=== PATIENT | male | born 1970 | race Caucasian/White ===

== ENCOUNTER 2016-06-25 09:52 | Emergency (ER) | payer OTHER ==
[2016-06-25 10:01] VITALS: BP 121/86
--- NOTE | 2016-06-25 12:09 | ER Document Report ---
ED Skin Rash/Insect Bite/Abscs - General Chief Complaint: Abscess Stated Complaint: ABSCESS Time seen by provider: 12:06 Mode of Arrival: Ambulatory Information source: Patient Notes: 45-year-old male presents to ED for abscess to the right buttocks. States it started about 2 weeks ago as a small bump and has progressed to a very tender bump. States that yesterday it started bleeding. States the pain has increased the most over the last 3 days. TRAVEL OUTSIDE OF THE [place] IN LAST 30 DAYS: No - HPI Patient complains to provider of: Tender/swollen area Onset: Other Onset/Duration: Gradual - 2 weeks Quality of pain: Burning, Sharp Severity: Moderate Pain Level: 4 Skin Character: Abscess Quality of rash: Painful Identify cause: No Exacerbated by: Sitting, Movement, Walking Relieved by: Denies Similar symptoms previously: No Recently seen / treated by doctor: No - Related Data Allergies/Adverse Reactions: No Known Allergies Allergy (Verified 06/25/16 10:13) Past Medical History - General Information source: Patient - Social History Smoking Status: Former Smoker Cigarette use (# per day): No Chew tobacco use (# tins/day): Yes - half a tin a day Smoking Education Provided: No Frequency of alcohol use: None Drug Abuse: None Occupation: advertising sales associate for [employer] Lives with: Alone Family History: Arthritis, CAD, DM, Hyperlipidemia, Hypertension, Malignancy Patient has suicidal ideation: No Patient has homicidal ideation: No - Past Medical History Cardiac Medical History: Reports: None Pulmonary Medical History: Reports: None EENT Medical History: Reports: None Neurological Medical History: Reports: None Endocrine Medical History: Reports: None Renal/ Medical History: Reports: None Malignancy Medical History: Reports None GI Medical History: Reports: None Musculoskeltal Medical History: Reports Hx Arthritis Skin Medical History: Reports Hx Cellulitis Psychiatric Medical History: Reports: None Traumatic Medical History: Reports: None Infectious Medical History: Reports: None Past Surgical History: Reports: Hx Oral Surgery - [place] teeth - Immunizations Immunizations up to date: Yes Review of Systems - Review of Systems Constitutional: No symptoms reported EENT: No symptoms reported Cardiovascular: No symptoms reported Respiratory: No symptoms reported Gastrointestinal: No symptoms reported Genitourinary: No symptoms reported Male Genitourinary: No symptoms reported Musculoskeletal: No symptoms reported Skin: Other - Abscess right buttocks Hematologic/Lymphatic: No symptoms reported Neurological/Psychological: No symptoms reported Physical Exam - Vital signs Vitals: Temp Pulse Resp BP Pulse Ox 98.6 F 113 H 18 121/86 H 97 06/25/16 10:01 06/25/16 10:01 06/25/16 10:01 06/25/16 10:01 06/25/16 10:01 Interpretation: Normal - General General appearance: Appears well, Alert - HEENT Head: Normocephalic, Atraumatic Eyes: Normal Pupils: PERRL - Respiratory Respiratory status: No respiratory distress Chest status: Nontender Breath sounds: Normal Chest palpation: Normal - Cardiovascular Rhythm: Regular Heart sounds: Normal auscultation Murmur: No - Abdominal Inspection: Normal Distension: No distension Bowel sounds: Normal Tenderness: Nontender Organomegaly: No organomegaly - Back Back: Normal, Nontender - Extremities General upper extremity: Normal inspection, Nontender, Normal color, Normal ROM , Normal temperature General lower extremity: Normal inspection, Nontender, Normal color, Normal ROM , Normal temperature, Normal weight bearing. No: Sharona's sign - Neurological Neuro grossly intact: Yes Cognition: Normal Orientation: AAOx4 [place] Coma Scale Eye Opening: Spontaneous [place] Coma Scale Verbal: Oriented [place] Coma Scale Motor: Obeys Commands [place] Coma Scale Total: 15 Speech: Normal Motor strength normal: LUE, RUE, LLE, RLE Sensory: Normal - Psychological Associated symptoms: Normal affect, Normal mood - Skin Skin Temperature: Warm Skin Moisture: Dry Skin Color: Normal Skin irregularity: Abscess - Right buttocks Irregularity with: Swelling, Tenderness, Warmth, Weeping Course - Vital Signs Vital signs: Temp Pulse Resp BP Pulse Ox 98.6 F 113 H 18 121/86 H 97 06/25/16 10:01 06/25/16 10:01 06/25/16 10:01 06/25/16 10:01 06/25/16 10:01 Procedures - Incision and Drainage Left Buttock Type: Simple Anesthetic type: 1% Lidocaine mL's of anesthetic: 4 I&D procedure: Iodoform packing placed, Sterile dressing applied, Other - surgical scrub Incision Method: Incision made by scalpel Amount/type of drainage: large amount purlent Discharge - Discharge Clinical Impression: Abscess of right buttock Condition: Stable Disposition: HOME, SELF-CARE Instructions: Family Physicians / Practices Additional Instructions: ABSCESS: You have an abscess (boil). This a pus-forming infection, usually due to staph. Some boils may be left to drain on their own, but most require lancing. From the time the tender lump first appears, it may be three or four days before the abscess is ready to daniel. Local heat and rest help at this stage of treatment. An antibiotic may prevent spread of the infection. Once the abscess is opened, packing may be placed into it. This is done so pus is not sealed inside by premature closure of the cavity. The packing will be removed at your follow-up visit or you may be advised to remove it yourself at home. Sometimes this packing must be replaced a few times during healing. The wound will heal with surprisingly little scar. Depending on the size and location of an abscess, healing can take one to four weeks. You may shower and wash the area around the incision site two or three times a day. Antibiotics may be prescribed, but are usually not necessary after an abscess has been drained. If you develop fever, chills, worsening pain, or increasing swelling in the area, call the doctor or return immediately. POST INCISION AND DRAINAGE: You have had an incision made to allow drainage of an abscess. The incision must remain open so that pus and debris can drain from the wound. If the abscess cavity is large, packing is placed. This keeps the tissues from collapsing and trapping pus inside, while the body shrinks the cavity. The packing may need to be replaced every day or two. The physician will instruct you on the packing. Keep a bulky dressing over the area. Replace it if it becomes saturated with blood or pus. Do not disturb the packing (if present). You may shower and cleanse the area with gentle soap and warm water two or three times a day. Local warmth may be soothing, and may promote faster healing. Return if you develop high fever or chills, or if you note spreading redness, increasing swelling, or increasing tenderness. ORAL NARCOTIC MEDICATION: You have been given a prescription for pain control. This medication is a narcotic. It's best taken with food, as nausea can result if taken on an empty stomach. Don't operate machinery or drive within six hours of taking this medication. Do not combine this medicine with alcohol, or with any medication which can cause sedation (such as cold tablets or sleeping pills) unless you get permission from the physician. Narcotics tend to cause constipation. If possible, drink plenty of fluids and eat a diet high in fiber and fruits. CEPHALEXIN: The antibiotic you've been prescribed is a member of the cephalosporin class. This type of antibiotic covers a wide variety of infections, including those of the skin, lungs, and urinary tract. It's useful for staph infections. This antibiotic is slightly similar to the penicillin family. In rare cases , a person who is allergic to penicillin will also be allergic to this medication. If you have had a severe allergic reaction to penicillin, and have not taken this antibiotic since that time, notify your doctor. Antibiotics which cover many germs ("broad spectrum" antibiotics) are more likely to cause diarrhea or "yeast" infections. Women prone to vaginal yeast problems may suffer an attack after taking this antibiotic. In infants, oral thrush (white spots "stuck" on the cheek) or yeast diaper rash may result. See your doctor if these problems occur. Call at once if you develop itching, hives , shortness of breath, or lightheadedness. TRIMETHOPRIM-SULFA: You have been given a prescription for trimethoprim-sulfa (TMS, Septra, Bactrim). This is a combination antibiotic of the sulfa class, often used for urinary tract infections, middle ear infections, bronchitis, shigella intestinal infection, and Pneumocystis pneumonia. TMS is usually well-tolerated. Occasional side effects include nausea and decreased appetite. Septra is not recommended for infants less than two months of age. Do not take this medication if you have experienced severe side effects or allergy to sulfa medicine. You should stop this medicine at once and contact your physician if you develop any rash, joint pain, shortness of breath, bruising, or jaundice ( yellow color in the skin), or if you develop any other new or unusual symptoms. FOLLOW-UP CARE: Most simple abscesses will not require a follow up visit. If you had packing placed in the abscess, remove it as instructed by the physician. If you have been referred to a physician for follow-up care, call the physicians office for an appointment as you were instructed or within the next two days. If you experience worsening or a significant change in your symptoms, return to the Emergency Department at any time for re-evaluation. Please complete the patient's satisfaction survey if you get one and return. If you do not receive a survey you can go to [facility] website [email or web address] and placed yourcomments about your very good care. Thank you very much. It was a pleasure be in your medical provider today. Prescriptions: Hydrocodone/Acetaminophen [[place] 5-325 Tablet] 1 each PO Q6HP PRN #14 tablet PRN Reason: Cephalexin Monohydrate [Keflex 500 mg Capsule] 500 mg PO QID #20 capsule Sulfamethoxazole/Trimethoprim [Septra-Ds 800-160 mg Tablet] 1 tab PO BID #20 tablet Forms: Elevated Blood Pressure, Return to Work
[2016-06-25] MEDS ORDERED: SULFAMETHOXAZOLE/TRIMETHOPRIM 800-160 MG TABLET PO ONE (12:43)
[2016-06-25] MEDS ORDERED: CEPHALEXIN 500 MG CAPSULE PO ONE (12:44)
== END 2016-06-25 13:05 | disposition home or self-care (01) ==
LOC: ER 09:52
PROC: 0H98XZZ Drainage of Buttock Skin, External Approach (ICD-10-PCS; principal; 2016-06-25)
DX: L02.31 Cutaneous abscess of buttock (principal); Z72.0 Tobacco use
CPT/HCPCS: 87070; 87075; 87077; 87205; 99283

== ENCOUNTER 2016-08-04 12:31 | Emergency (ER) | payer SELFPAY ==
[2016-08-04 12:39] VITALS: BP 119/86
--- NOTE | 2016-08-04 13:52 | ER Document Report ---
ED Skin Rash/Insect Bite/Abscs - General Chief Complaint: Abscess Stated Complaint: ABSCESS Notes: patient is a 45 year old male who presents with an exisiting abscess for assessment. located on right buttoks. he states it has continued drainage and pain at the site. he took his antibiotics as prescribed. pain is only illicted to touch. denies fevers or chills TRAVEL OUTSIDE OF THE [place] IN LAST 30 DAYS: No - Related Data Allergies/Adverse Reactions: No Known Allergies Allergy (Verified 08/04/16 12:36) Past Medical History - Social History Smoking Status: Never Smoker Family History: Arthritis, CAD, DM, Hyperlipidemia, Hypertension, Malignancy Patient has suicidal ideation: No Patient has homicidal ideation: No Renal/ Medical History: Denies: Hx Peritoneal Dialysis Musculoskeltal Medical History: Reports Hx Arthritis Skin Medical History: Reports Hx Cellulitis Past Surgical History: Reports: Hx Oral Surgery - [place] teeth - Immunizations Immunizations up to date: Yes Review of Systems - Review of Systems Constitutional: No symptoms reported EENT: No symptoms reported Cardiovascular: No symptoms reported Respiratory: No symptoms reported Gastrointestinal: No symptoms reported Skin: See HPI Physical Exam - Vital signs Vitals: Temp Pulse Resp BP Pulse Ox 98.2 F 78 16 119/86 H 98 08/04/16 12:37 08/04/16 12:37 08/04/16 12:37 08/04/16 12:37 08/04/16 12:37 - Notes Notes: PHYSICAL EXAM GENERAL: Alert, interacts well. NEUROLOGICAL: Alert and oriented x4. Normal speech. PSYCH: Normal affect, normal mood. SKIN: Warm, dry, normal turgor. No rashes or lesions noted. - Skin Skin Temperature: Warm Skin Moisture: Dry Skin Color: Normal Skin Turgor: Elastic Skin irregularity: Abscess Location of irregularity: Other - right buttocks Course - Re-evaluation Re-evalutation: 08/04/16 20:53 Site is well healing by second intention previously dictated abscess. No evidence of drainage. No evidence of erythema nontender to palpation. Review of previous wound culture shows evidence of Peptostreptococcus. Will treat with medications to cover it - Vital Signs Vital signs: Temp Pulse Resp BP Pulse Ox 98.2 F 78 16 119/86 H 98 08/04/16 12:37 08/04/16 12:37 08/04/16 12:37 08/04/16 12:37 08/04/16 12:37 Discharge - Discharge Clinical Impression: Cellulitis Condition: Good Disposition: HOME, SELF-CARE Instructions: Cellulitis ([facility]) Prescriptions: Clindamycin HCl 450 mg PO TID #5 capsule
== END 2016-08-04 13:55 | disposition home or self-care (01) ==
LOC: ER 12:31
DX: L03.90 Cellulitis, unspecified (principal); L02.31 Cutaneous abscess of buttock
CPT/HCPCS: 99283

== ENCOUNTER 2016-09-14 09:04 | Emergency (ER) | payer SELFPAY ==
[2016-09-14] MEDS ORDERED: NORMAL SALINE 1000 ML 1,000 ML IV PRN (09:42)
[2016-09-14] MEDS ORDERED: ONDANSETRON HCL INJ/PF 4 MG/2 ML SDV IV ONE (09:42)
--- NOTE | 2016-09-14 09:43 | ER Document Report ---
ED Medical Screen (RME) - General Chief Complaint: Rectal Bleeding Stated Complaint: POSSIBLE BLOOD IN STOOL Time Seen by Provider: 09/14/16 09:37 Mode of Arrival: Ambulatory Information source: Patient TRAVEL OUTSIDE OF THE [place] IN LAST 30 DAYS: No - HPI Patient complains to provider of: bloody stools Notes: 09/14/16 09:46 Patient is a 46-year-old male who presents to the emergency room complaining of a 5 day history of mucousy stools that started to have blood in them this morning, he is having pain across his lower abdomen, he denies any fevers, no urinary symptoms, no history of similar symptoms previously, no surgical history no trauma, he does have a history of a buttock abscess that was treated at this facility back in July which she states is not really gotten much better - Related Data Smoking: Chew Frequency of alcohol use: Occasional Drug Abuse: None Allergies/Adverse Reactions: No Known Allergies Allergy (Verified 08/04/16 12:36) Past Medical History Renal/ Medical History: Denies: Hx Peritoneal Dialysis Musculoskeltal Medical History: Reports Hx Arthritis Skin Medical History: Reports Hx Cellulitis Past Surgical History: Reports: Hx Oral Surgery - [place] teeth - Immunizations Immunizations up to date: Yes Physical Exam - Vital signs Vitals: Temp Pulse Resp BP Pulse Ox 98.9 F 125 H 18 146/84 H 95 09/14/16 09:08 09/14/16 09:08 09/14/16 09:08 09/14/16 09:08 09/14/16 09:08 Course - Vital Signs Vital signs: Temp Pulse Resp BP Pulse Ox 98.9 F 125 H 18 146/84 H 95 09/14/16 09:08 09/14/16 09:08 09/14/16 09:08 09/14/16 09:08 09/14/16 09:08
[2016-09-14 10:12] LABS: ABSOLUTE BASOPHILS # (AUTO) 0.1 10^3/uL (0.0-0.2); ABSOLUTE EOSINOPHILS # (AUTO) 0.2 10^3/uL (0.0-0.6); ABSOLUTE LYMPHOCYTES (AUTO) 1.3 10^3/uL (0.5-4.7); ABSOLUTE MONOCYTES (AUTO) 1.2 10^3/uL (0.1-1.4); ABSOLUTE NEUT (AUTO) 12.8 10^3/uL (1.7-8.2); BASOPHILS % (AUTO) 0.5 % (0-2); EOSINOPHILS % (AUTO) 1.5 % (0-6); HEMATOCRIT 47.4 % (37.9-51.0); HEMOGLOBIN 15.4 g/dL (13.5-17.0); HGB HCT DIFFERENCE -1.2; LYMPHOCYTES % (AUTO) 8.3 % (13-45); MEAN CORPUSCULAR HEMOGLOBIN 27.4 pg (27.0-33.4); MEAN CORPUSCULAR HGB CONC 32.5 g/dL (32.0-36.0); MEAN CORPUSCULAR VOLUME 84 fl (80-97); MONOCYTES % (AUTO) 7.5 % (3-13); RED BLOOD COUNT 5.62 10^6/uL (4.35-5.55); RED CELL DISTRIBUTION WIDTH 13.1 % (11.5-14.0); SEGMENTED NEUTROPHILS % (AUTO) 82.2 % (42-78); WHITE BLOOD COUNT 15.5 10^3/uL (4.0-10.5)
[2016-09-14 10:31] LABS: ALANINE AMINOTRANSFERASE 42 U/L (21-72); ALBUMIN 3.8 g/dL (3.5-5.0); ALKALINE PHOSPHATASE 91 U/L (38-126); ANION GAP 14 (5-19); ASPARTATE AMINO TRANSFERASE 25 U/L (17-59); BILIRUBIN,DIRECT 0.3 mg/dL (0.0-0.4); BILIRUBIN,TOTAL 0.6 mg/dL (0.2-1.3); BLOOD UREA NITROGEN 13 mg/dL (7-20); CALCIUM 8.9 mg/dL (8.4-10.2); CARBON DIOXIDE 20 mmol/L (22-30); CHLORIDE 102 mmol/L (98-107); CREATININE RESULT 0.93 mg/dL (0.52-1.25); GLUCOSE 162 mg/dL (75-110); LIPASE 45.9 U/L (23-300); POTASSIUM 4.3 mmol/L (3.6-5.0); SODIUM 136.3 mmol/L (137-145); TOTAL PROTEIN 6.9 g/dL (6.3-8.2)
--- NOTE | 2016-09-14 11:18 | RADIOLOGY REPORT (SQ) ---
EXAM DESCRIPTION: CT ABD/PELVIS WITH IV ONLY COMPLETED DATE/TIME: 09/14/2016 11:07 am REASON FOR STUDY: abd pain, bloody stools COMPARISON: None. TECHNIQUE: CT scan of the abdomen and pelvis performed using helical scanning technique with dynamic intravenous contrast injection. No oral contrast. Images reviewed with lung, soft tissue, and bone windows. Reconstructed coronal and sagittal MPR images reviewed. Delayed images for evaluation of the urinary system also acquired. All images stored on PACS. All CT scanners at this facility use dose modulation, iterative reconstruction, and/or weight based d osing when appropriate to reduce radiation dose to as low as reasonably achievable (ALARA). [facility]: Dose Right [facility]: CareDose [facility]: Dose Right [facility]: Teradose 4D [facility]: Lending[employer]ot CONTRAST TYPE AND DOSE: contrast/concentration: Isovue 370.00 mg/ml; Total Contrast Delivered: 100.0 ml; Total Saline Delivered: 72.0 ml RENAL FUNCTION: GFR > 60. RADIATION DOSE: Up-to-date CT equipment and radiation dose reduction techniques were employed. CTDIv ol: 19.7 - 20.8 mGy. DLP: 2556 mGy-cm.. LIMITATIONS: None. FINDINGS: LOWER CHEST: No significant findings. No nodules or infiltrates. LIVER: Normal size. No masses or dilated ducts. SPLEEN: Normal size. No focal lesions. PANCREAS: No masses. No significant calcifications. No adjacent inflammation or peripancreatic fluid collections. Pancreatic duct not dilated. GALLBLADDER: No identified stones by CT criteria. No inflammatory changes to suggest cholecystitis. ADRENAL GLANDS: No significant masses or asymmetry. RIGHT KIDNEY AND URETER: No solid masses. No significant calcifications. No hydronephrosis or hyd roureter. LEFT KIDNEY AND URETER: No solid masses. No significant calcifications. No hydronephrosis or hydr oureter. AORTA AND VESSELS: No aneurysm. No dissection. Renal arteries, SMA, celiac without stenosis. RETROPERITONEUM: No retroperitoneal adenopathy, hemorrhage or masses. BOWEL AND PERITONEAL CAVITY: Generalize sub mucosal and bowel wall thickening throughout the colon an d involving the distal ileum. No pericolonic fat stranding. APPENDIX: Normal. PELVIS: No mass or free fluid. Normal bladder. ABDOMINAL WALL: No masses. No hernias. BONES: No significant or acute findings. OTHER: No other significant finding. IMPRESSION: Diffuse colitis. TECHNICAL DOCUMENTATION: JOB ID: [id number] Quality ID # [id number]: Final reports with documentation of one or more dose reduction techniques (e.g., Au tomated exposure control, adjustment of the mA and/or kV according to patient size, use of iterative reconstruction technique) 2010 [employer]- All Rights Reserved
[2016-09-14 11:43] LABS: APPEARANCE,URINE CLEAR; BILIRUBIN,URINE NEGATIVE (NEGATIVE); GLUCOSE, URINE NEGATIVE (NEGATIVE); KETONES,URINE NEGATIVE (NEGATIVE); LEUKOCYTE ESTERASE,URINE NEGATIVE (NEGATIVE); NITRITE,URINE NEGATIVE (NEGATIVE); PROTEIN,URINE NEGATIVE (NEGATIVE); URINE SPECIFIC GRAVITY 1.018; UROBILINOGEN,URINE NEGATIVE mg/dL (<2.0)
--- NOTE | 2016-09-14 12:16 | ER Document Report ---
ED General - General Chief Complaint: Rectal Bleeding Stated Complaint: POSSIBLE BLOOD IN STOOL Time Seen by Provider: 09/14/16 09:37 Mode of Arrival: Ambulatory Information source: Patient Notes: 46-year-old male presents with complaints of cramping abdominal pain fever and bloody stools. Patient notes symptoms have been ongoing now for approximately 5 days. Patient denies any recent antibiotic use TRAVEL OUTSIDE OF THE [place] IN LAST 30 DAYS: No - HPI Onset: Last week Onset/Duration: Persistent Quality of pain: Cramping Severity: Mild Pain Level: 1 Associated symptoms: Diarrhea, Nausea Exacerbated by: Denies Relieved by: Denies Similar symptoms previously: No Recently seen / treated by doctor: No - Related Data Allergies/Adverse Reactions: No Known Allergies Allergy (Verified 09/14/16 09:58) Past Medical History - General Information source: Patient - Social History Smoking Status: Never Smoker Cigarette use (# per day): No Chew tobacco use (# tins/day): No Smoking Education Provided: No Frequency of alcohol use: Occasional Drug Abuse: None Family History: Arthritis, CAD, DM, Hyperlipidemia, Hypertension, Malignancy Patient has suicidal ideation: No Patient has homicidal ideation: No Renal/ Medical History: Denies: Hx Peritoneal Dialysis Musculoskeltal Medical History: Reports Hx Arthritis Skin Medical History: Reports Hx Cellulitis Past Surgical History: Reports: Hx Oral Surgery - [place] teeth, Hx Rectal Surgery - abscess - Immunizations Immunizations up to date: Yes Hx Diphtheria, Pertussis, Tetanus Vaccination: Yes Review of Systems - Review of Systems Notes: REVIEW OF SYSTEMS: CONSTITUTIONAL : Denies fever, chills, or sweats. Denies recent illness. EENT: Denies eye, ear, throat, or mouth pain or symptoms. Denies nasal or sinus congestion or discharge. Denies throat, tongue, or mouth swelling or difficulty swallowing. CARDIOVASCULAR: Denies chest pain. Denies palpitations or racing or irregular heart beat. Denies ankle edema. RESPIRATORY: Denies cough, cold, or chest congestion. Denies shortness of breath, difficulty breathing, or wheezing. GASTROINTESTINAL: Admits to diarrhea bloody stool GENITOURINARY: Denies difficulty urinating, painful urination, burning, frequency, blood in urine, or discharge. MUSCULOSKELETAL: Denies back or neck pain or stiffness. Denies joint pain or swelling. SKIN: Denies rash, lesions or sores. HEMATOLOGIC : Denies easy bruising or bleeding. LYMPHATIC: Denies swollen, enlarged glands. NEUROLOGICAL: Denies confusion or altered mental status. Denies passing out or loss of consciousness. Denies dizziness or lightheadedness. Denies headache. Denies weakness or paralysis or loss of use of either side. Denies problems with gait or speech. Denies sensory loss, numbness, or tingling. Denies seizures. PSYCHIATRIC: Denies anxiety or stress. Denies depression, suicidal ideation, or homicidal ideation. ALL OTHER SYSTEMS REVIEWED AND NEGATIVE. Dictation was performed using [employer] recognition software PHYSICAL EXAMINATION: GENERAL: Well-appearing, well-nourished and in no acute distress. HEAD: Atraumatic, normocephalic. EYES: Pupils equal round and reactive to light, extraocular movements intact, sclera anicteric, conjunctiva are normal. ENT: Nares patent, oropharynx clear without exudates. Moist mucous membranes. NECK: Normal range of motion, supple without lymphadenopathy LUNGS: Breath sounds clear to auscultation bilaterally and equal. No wheezes rales or rhonchi. HEART: Regular rate and rhythm without murmurs ABDOMEN: Soft, nontender, nondistended abdomen. No guarding, no rebound. No masses appreciated. Hemoccult positive Musculoskeletal: Normal range of motion, no pitting or edema. No cyanosis. NEUROLOGICAL: Cranial nerves grossly intact. Normal speech, normal gait. Normal sensory, motor exams PSYCH: Normal mood, normal affect. SKIN: Warm, Dry, normal turgor, no rashes or lesions noted. Physical Exam - Vital signs Vitals: Temp Pulse Resp BP Pulse Ox 98.9 F 125 H 18 146/84 H 95 09/14/16 09:08 09/14/16 09:08 09/14/16 09:08 09/14/16 09:08 09/14/16 09:08 Course - Re-evaluation Re-evalutation: 09/14/16 13:28 Patient is noted to have an elevated white count, his CT imaging was consistent with colitis, patient had been discharged on Cipro and Flagyl however I did receive a positive result for C. difficile afterwards. Patient had been prescribed Flagyl however I would like to increase the dosage given the positive diagnosis. A call was made by myself and then by the charge nurse and the voice message was left for the patient to call back After performing a Medical Screening Examination, I estimate there is LOW risk for ACUTE APPENDICITIS, BOWEL OBSTRUCTION, ACUTE CHOLECYSTITIS, PERFORATED DIVERTICULITIS, INCARCERATED HERNIA, PANCREATITIS, or PERFORATED ULCER, thus I consider the discharge disposition reasonable. Also, there is no evidence or peritonitis, sepsis, or toxicity. I have reevaluated this patient multiple times and no significant life threatening changes are noted. The patient and I have discussed the diagnosis and risks, and we agree with discharging home with close follow-up with the understanding that symptoms and presentations can change. We also discussed returning to the Emergency Department immediately if new or worsening symptoms occur. We have discussed the symptoms which are most concerning (e.g., bloody stool, fever, changing or worsening pain, intractable vomiting - standard verbal up date) that necessitate immediate return. - Vital Signs Vital signs: Temp Pulse Resp BP Pulse Ox 98.7 F 111 H 18 144/88 H 99 09/14/16 12:37 09/14/16 12:37 09/14/16 12:37 09/14/16 12:37 09/14/16 12:37 - Laboratory Result Diagrams: 09/14/16 09:50 09/14/16 09:50 Laboratory results interpreted by me: 09/14/16 09/14/16 09/14/16 09:50 09:50 10:55 WBC 15.5 H RBC 5.62 H Seg Neutrophils % 82.2 H Lymphocytes % 8.3 L Absolute Neutrophils 12.8 H Sodium 136.3 L Carbon Dioxide 20 L Glucose 162 H Urine Blood MODERATE H - Diagnostic Test Radiology reviewed: Image reviewed, Reports reviewed - Colitis Discharge - Discharge Clinical Impression: Colitis, Tachycardia, Colitis due to Clostridium difficile Condition: Stable Disposition: HOME, SELF-CARE Instructions: Colitis, Nonspecific ([facility]) Additional Instructions: Follow up with your physician tomorrow for further care or return to the ED IMMEDIATELY if symptoms worsen or new concerns occur. If you cannot afford to follow up with your primary care physician a list of low cost clinics have been provided at the end of your discharge papers as well. Prescriptions: Ondansetron HCl [Zofran 8 mg Tablet] 8 mg PO Q8HP PRN #30 tablet PRN Reason: Ciprofloxacin HCl [Cipro 500 mg Tablet] 500 mg PO BID #20 tablet Dicyclomine HCl [Bentyl 20 mg Tablet] 20 mg PO QID #40 tablet Metronidazole [Flagyl 500 mg Tablet] 500 mg PO Q6H #28 tablet
[2016-09-14 12:37] VITALS: BP 144/88
--- NOTE | 2016-09-14 13:02 | EKG REPORT ---
SEVERITY:- BORDERLINE ECG - SINUS TACHYCARDIA BORDERLINE T ABNORMALITIES, DIFFUSE LEADS : Confirmed by: Ana Shah MD 14-Sep-2016 13:01:34
== END 2016-09-14 12:37 | disposition home or self-care (01) ==
LOC: ER 09:04
DX: A04.7 Enterocolitis due to Clostridium difficile (principal); R00.0 Tachycardia, unspecified; R19.5 Other fecal abnormalities; R10.9 Unspecified abdominal pain; R11.0 Nausea
CPT/HCPCS: 93005; 99284; 96360; 36415; 87045; 87086; 89055; 87205; 83690; 85025; 82272; 80053; 81001; 87493 ×2; 74177; 93010; J7030

== ENCOUNTER 2016-10-09 06:42 | Emergency (ER) | payer SELFPAY ==
[2016-10-09] MEDS ORDERED: NORMAL SALINE 1000 ML 1,000 ML IV PRN (07:10)
[2016-10-09] MEDS ORDERED: NORMAL SALINE 1000 ML 1,000 ML IV ONE (07:17)
[2016-10-09] MEDS ORDERED: AMPICILLIN SOD/SULBACTAM 3 GM VIAL IV ONE (07:17)
[2016-10-09] MEDS ORDERED: METRONIDAZOLE 500 MG/NS RTU 100 ML IV ONE (07:17)
[2016-10-09] MEDS ORDERED: ONDANSETRON HCL INJ/PF 4 MG/2 ML SDV IV ONE (07:18)
[2016-10-09 07:32] LABS: ABSOLUTE BASOPHILS # (AUTO) 0.1 10^3/uL (0.0-0.2); ABSOLUTE EOSINOPHILS # (AUTO) 0.5 10^3/uL (0.0-0.6); ABSOLUTE LYMPHOCYTES (AUTO) 2.1 10^3/uL (0.5-4.7); ABSOLUTE MONOCYTES (AUTO) 1.5 10^3/uL (0.1-1.4); ABSOLUTE NEUT (AUTO) 15.2 10^3/uL (1.7-8.2); BASOPHILS % (AUTO) 0.7 % (0-2); EOSINOPHILS % (AUTO) 2.7 % (0-6); HEMATOCRIT 47.4 % (37.9-51.0); HEMOGLOBIN 15.4 g/dL (13.5-17.0); HGB HCT DIFFERENCE -1.2; LYMPHOCYTES % (AUTO) 10.5 % (13-45); MEAN CORPUSCULAR HEMOGLOBIN 27.4 pg (27.0-33.4); MEAN CORPUSCULAR HGB CONC 32.5 g/dL (32.0-36.0); MEAN CORPUSCULAR VOLUME 84 fl (80-97); MONOCYTES % (AUTO) 7.8 % (3-13); RED BLOOD COUNT 5.63 10^6/uL (4.35-5.55); RED CELL DISTRIBUTION WIDTH 13.9 % (11.5-14.0); SEGMENTED NEUTROPHILS % (AUTO) 78.3 % (42-78); WHITE BLOOD COUNT 19.5 10^3/uL (4.0-10.5)
[2016-10-09 07:35] LABS: VENOUS BLOOD BASE EXCESS -0.9 mmol/L; VENOUS BLOOD HCO3 24.7 mmol/L (20-32); VENOUS BLOOD PCO2 44.2 mmHg (35-63); VENOUS BLOOD PH 7.37 (7.30-7.42)
[2016-10-09 07:38] LABS: PROTHROMBIN TIME 13.1 SEC (11.4-15.4)
[2016-10-09 07:39] LABS: PARTIAL THROMBOPLASTIN TIME 28.6 SEC (23.5-35.8)
[2016-10-09 07:58] LABS: ALANINE AMINOTRANSFERASE 47 U/L (21-72); ALBUMIN 3.8 g/dL (3.5-5.0); ALKALINE PHOSPHATASE 80 U/L (38-126); ANION GAP 13 (5-19); ASPARTATE AMINO TRANSFERASE 22 U/L (17-59); BILIRUBIN,DIRECT 0.3 mg/dL (0.0-0.4); BILIRUBIN,TOTAL 0.9 mg/dL (0.2-1.3); BLOOD UREA NITROGEN 14 mg/dL (7-20); CALCIUM 9.1 mg/dL (8.4-10.2); CARBON DIOXIDE 24 mmol/L (22-30); CHLORIDE 102 mmol/L (98-107); CREATININE RESULT 1.09 mg/dL (0.52-1.25); GLUCOSE 151 mg/dL (75-110); LIPASE 67.3 U/L (23-300); SODIUM 139.2 mmol/L (137-145); TOTAL PROTEIN 6.7 g/dL (6.3-8.2)
[2016-10-09 08:56] LABS: APPEARANCE,URINE SLIGHTLY-CLOUDY; BILIRUBIN,URINE NEGATIVE (NEGATIVE); GLUCOSE, URINE NEGATIVE (NEGATIVE); KETONES,URINE NEGATIVE (NEGATIVE); LEUKOCYTE ESTERASE,URINE NEGATIVE (NEGATIVE); NITRITE,URINE NEGATIVE (NEGATIVE); PROTEIN,URINE 30 mg/dL (NEGATIVE); URINE SPECIFIC GRAVITY 1.031; UROBILINOGEN,URINE NEGATIVE mg/dL (<2.0)
--- NOTE | 2016-10-09 10:08 | ER Document Report ---
ED General - General Chief Complaint: Diarrhea Stated Complaint: ABDOMINEL CRAMPING,DIARRHEA Time Seen by Provider: 10/09/16 07:15 TRAVEL OUTSIDE OF THE [place] IN LAST 30 DAYS: No - HPI Patient complains to provider of: Abdominal cramping nausea diarrhea Notes: Patient coming in for abdominal cramping nausea diarrhea. Patient was recently seen and diagnosed with C. difficile colitis states was given Flagyl antibiotics to call this antibiotics was feeling better for approximately 3 days now has continuing diarrhea. Patient denies any fevers or chills. Patient upon triage is tachycardic and hypotensive. Patient otherwise denies any other complaints denies specific area of abdominal pain - Related Data Allergies/Adverse Reactions: No Known Allergies Allergy (Verified 09/14/16 09:58) Past Medical History - Social History Smoking Status: Unknown if Ever Smoked Family History: Arthritis, CAD, DM, Hyperlipidemia, Hypertension, Malignancy Patient has suicidal ideation: No Patient has homicidal ideation: No Renal/ Medical History: Denies: Hx Peritoneal Dialysis Musculoskeltal Medical History: Reports Hx Arthritis Skin Medical History: Reports Hx Cellulitis Past Surgical History: Reports: Hx Oral Surgery - [place] teeth, Hx Rectal Surgery - abscess - Immunizations Immunizations up to date: Yes Hx Diphtheria, Pertussis, Tetanus Vaccination: Yes Review of Systems - Review of Systems Constitutional: No symptoms reported EENT: No symptoms reported Cardiovascular: No symptoms reported Respiratory: No symptoms reported Gastrointestinal: Abdominal pain, Diarrhea, Nausea Genitourinary: No symptoms reported Male Genitourinary: No symptoms reported Musculoskeletal: No symptoms reported Skin: No symptoms reported Hematologic/Lymphatic: No symptoms reported Neurological/Psychological: No symptoms reported -: Yes All other systems reviewed and negative Physical Exam - Vital signs Vitals: Temp Pulse Resp BP Pulse Ox 98.2 F 99 18 91/61 L 98 10/09/16 06:51 10/09/16 06:51 10/09/16 06:51 10/09/16 06:51 10/09/16 06:51 Interpretation: Normal - General General appearance: Appears well, Alert - HEENT Head: Normocephalic, Atraumatic Eyes: Normal Pupils: PERRL - Respiratory Respiratory status: No respiratory distress Chest status: Nontender Breath sounds: Normal Chest palpation: Normal - Cardiovascular Rhythm: Regular Heart sounds: Normal auscultation Murmur: No - Abdominal Inspection: Normal Distension: No distension Bowel sounds: Normal Tenderness: Nontender Organomegaly: No organomegaly - Back Back: Normal, Nontender - Extremities General upper extremity: Normal inspection, Nontender, Normal color, Normal ROM , Normal temperature General lower extremity: Normal inspection, Nontender, Normal color, Normal ROM , Normal temperature, Normal weight bearing. No: Sharona's sign - Neurological Neuro grossly intact: Yes Cognition: Normal Orientation: AAOx4 [place] Coma Scale Eye Opening: Spontaneous [place] Coma Scale Verbal: Oriented [place] Coma Scale Motor: Obeys Commands [place] Coma Scale Total: 15 Speech: Normal Motor strength normal: LUE, RUE, LLE, RLE Sensory: Normal - Psychological Associated symptoms: Normal affect, Normal mood - Skin Skin Temperature: Warm Skin Moisture: Dry Skin Color: Normal Course - Re-evaluation Re-evalutation: 10/09/16 14:16 Patient coming in for diarrhea abdominal pain. Patient was slightly hypotensive upon arrival. Patient states was recently treated for C. difficile infection finished antibiotics was good for 3 days and then symptoms started back. Patient states she was on Flagyl continues to call with Flagyl. States antibiotic course was approximately 10 days. Patient's evaluation still shows C. difficile infection. Patient will be given a Flagyl regimen for the next 2 weeks. Patient was encouraged to drink plenty of fluids take probiotics to increase yogurt intake. Patient states understanding. Did have our social studies teacher scheduled the patient appointment for outpatient clinic and also evaluate patient for assistance with medications with - Vital Signs Vital signs: Temp Pulse Resp BP Pulse Ox 98.2 F 99 18 139/78 H 96 10/09/16 06:51 10/09/16 06:51 10/09/16 12:50 10/09/16 12:50 10/09/16 12:50 - Laboratory Result Diagrams: 10/09/16 07:06 10/09/16 07:06 Laboratory results interpreted by me: 10/09/16 10/09/16 10/09/16 07:06 07:06 08:18 WBC 19.5 H RBC 5.63 H Seg Neutrophils % 78.3 H Lymphocytes % 10.5 L Absolute Neutrophils 15.2 H Absolute Monocytes 1.5 H Glucose 151 H Urine Protein 30 H Urine Blood MODERATE H Discharge - Discharge Clinical Impression: C. difficile colitis Condition: Good Disposition: HOME, SELF-CARE Instructions: C. (Clostridium) Difficile Infection ([facility]), Reglan ([facility]) Additional Instructions: Your laboratory studies does show that you have an infection and C. difficile colitis. Please take antibiotic as prescribed. Please make sure you are drinking plenty of water to stay hydrated. Also recommend Gatorade for hydration. Please follow-up with the clinic provided you have an appointment for October 23 at 6:00. Please go to the pharmacy as directed to do Your medications. Please use probiotics please increase your daily intake of yogurt Irecommend 2-3 containers of yogurt a day. Any brand of yogurt will have good bacteria in it Prescriptions: Lactobacillus Combination No.4 [Probiotic] 1 each PO DAILY #30 capsule Metoclopramide HCl [Reglan] 5 mg PO Q6 #20 tablet Metronidazole [Flagyl 500 mg Tablet] 500 mg PO Q6H #56 tablet
--- NOTE | 2016-10-09 10:38 | RADIOLOGY REPORT (SQ) ---
EXAM DESCRIPTION: CT ABD/PELVIS WITH IV ORAL COMPLETED DATE/TIME: 10/09/2016 10:24 am REASON FOR STUDY: hx of colitis sepsis COMPARISON: CT abdomen pelvis 09/14/2016, 05/27/2010 TECHNIQUE: CT scan of the abdomen and pelvis performed using helical scanning technique with dynamic intravenous contrast injection. Patient drank oral contrast. Images reviewed with lung, soft tissue, and bone windows. Reconstructed coronal and sagittal MPR imag es reviewed. Delayed images for evaluation of the urinary system also acquired. All images stored on PACS. All CT scanners at this facility use dose modulation, iterative reconstruction, and/or weight based d osing when appropriate to reduce radiation dose to as low as reasonably achievable (ALARA). [facility]: Dose Right [facility]: CareDose [facility]: Dose Right [facility]: Teradose 4D [facility]: [employer] CONTRAST TYPE AND DOSE: contrast/concentration: Isovue 370.00 mg/ml; Total Contrast Delivered: 100.0 ml; Total Saline Delivered: 45.1 ml RENAL FUNCTION: Creatinine 1.09 RADIATION DOSE: 46.02. LIMITATIONS: None FINDINGS: There is diffuse wall thickening and luminal narrowing with surrounding inflammatory forrest e in the pericolic fat, along the descending colon from the splenic flexure through the distal sigmoi d colon. Pericolic inflammation is most evident on axial image 56, and coronal images 26-40. There is no pericolic abscess or adjacent free fluid. Inflammatory colon wall thickening is present throughout the ascending colon. No pericolic inflammat ion. No CT evidence of bowel obstruction or free intraperitoneal air or free fluid. Normal enhancement of the superior mesenteric artery and vein. No evidence of portal venous gas. No bowel wall pneumatos is. Overall, this pattern of inflammatory change in the colon is very similar compared to 09/14/2016. LOWER CHEST: No significant findings. No nodules or infiltrates. LIVER: Normal size. No masses. No dilated ducts. SPLEEN: Normal size. No focal lesions. PANCREAS: No masses. No significant calcifications. No adjacent inflammation or peripancreatic fluid collections. Pancreatic duct not dilated. GALLBLADDER: No identified stones by CT criteria. No inflammatory changes to suggest cholecystitis. ADRENAL GLANDS: No significant masses or asymmetry. RIGHT KIDNEY AND URETER: No solid masses. 12 mm right upper pole renal cortical cyst. No significan t calcifications. No hydronephrosis or hydroureter. LEFT KIDNEY AND URETER: No solid masses. No significant calcifications. No hydronephrosis or hydr oureter. AORTA AND VESSELS: No aneurysm. No dissection. Renal arteries, SMA, celiac without stenosis. RETROPERITONEUM: No retroperitoneal adenopathy, hemorrhage or masses. BOWEL AND PERITONEAL CAVITY: As above APPENDIX: Normal. PELVIS: No mass. No free fluid. Normal bladder. ABDOMINAL WALL: No masses. No hernias. BONES: No significant or acute findings. OTHER: No other significant finding. IMPRESSION: Colitis, most pronounced along the distal descending colon. There is wall thickening an d mild pericolic fat inflammatory change. Overall pattern is very similar to 09/14/2016 worrisome for inflammatory bowel disease. TECHNICAL DOCUMENTATION: JOB ID: [id number] Quality ID # [id number]: Final reports with documentation of one or more dose reduction techniques (e.g., Au tomated exposure control, adjustment of the mA and/or kV according to patient size, use of iterative reconstruction technique) 2010 [employer]- All Rights Reserved
--- NOTE | 2016-10-09 11:21 | RADIOLOGY REPORT (SQ) ---
EXAM DESCRIPTION: CHEST PA/LAT COMPLETED DATE/TIME: 10/09/2016 10:49 am REASON FOR STUDY: sepsis COMPARISON: None. EXAM PARAMETERS: NUMBER OF VIEWS: two views TECHNIQUE: Digital Frontal and Lateral radiographic views of the chest acquired. RADIATION DOSE: NA LIMITATIONS: none FINDINGS: LUNGS AND PLEURA: No opacities, masses or pneumothorax. No pleural effusion. MEDIASTINUM AND HILAR STRUCTURES: No masses or contour abnormalities. HEART AND VASCULAR STRUCTURES: Heart normal size. No evidence for failure. BONES: No acute findings. HARDWARE: None in the chest. OTHER: No other significant finding. IMPRESSION: NO SIGNIFICANT RADIOGRAPHIC FINDING IN THE CHEST. TECHNICAL DOCUMENTATION: JOB ID: [id number] [employer]- All Rights Reserved
[2016-10-09] MEDS ORDERED: KETOROLAC TROMETHAMINE INJ/PF 30 MG/1 ML SDV IV ONE (12:40)
[2016-10-09] MEDS ORDERED: METRONIDAZOLE 500 MG TABLET PO ONE (12:40)
[2016-10-09 12:55] VITALS: BP 139/78
== END 2016-10-09 13:04 | disposition home or self-care (01) ==
LOC: ER 06:42
DX: A04.7 Enterocolitis due to Clostridium difficile (principal); R19.7 Diarrhea, unspecified; R10.9 Unspecified abdominal pain
CPT/HCPCS: 99284; 96361; 96375; 96365; 96367; 86900; 86901; 36415; 87040; 87045; 87205; 87209; 86850; 83690; 87177; 85025; 85610; 85730; 82272; 80053; 81001; 87493 ×2; 82803; 83605; 71020; 74177; J0295; J1885; J2405; J7030

== ENCOUNTER 2017-12-25 05:35 | Day surgery (SDC) | payer BC ==
[~2017-12-25 05:35] MED LIST: DEXTROSE 5%-LACTATED RINGERS 1,000 ML IV PRN
[2017-12-25 05:53] LABS: HEMATOCRIT 43.8 % (37.9-51.0); HEMOGLOBIN 15.2 g/dL (13.5-17.0); MEAN CORPUSCULAR HEMOGLOBIN 29.3 pg (27.0-33.4); MEAN CORPUSCULAR HGB CONC 34.8 g/dL (32.0-36.0); MEAN CORPUSCULAR VOLUME 84 fl (80-97); PLATELET COUNT 202 10^3/uL (150-450); RED BLOOD COUNT 5.21 10^6/uL (4.35-5.55); RED CELL DISTRIBUTION WIDTH 13.2 % (11.5-14.0)
[2017-12-25] MEDS ORDERED: LIDOCAINE 2% INJ-PF (20 MG/ML) 10 ML AMPUL ONE ×2 (06:23→06:49)
[2017-12-25] MEDS ORDERED: ONDANSETRON HCL INJ/PF 4 MG/2 ML SDV ONE ×2 (06:24→13:25)
[2017-12-25] MEDS ORDERED: PROPOFOL INJ 200 MG/20 ML VIAL IV ONE ×2 (06:24→06:50)
[2017-12-25] MEDS ORDERED: DEXAMETHASONE SOD PHOSPHATE INJ 4 MG/1 ML VIAL ONE ×2 (06:24→13:25)
[2017-12-25] MEDS ORDERED: MIDAZOLAM 2 MG/2 ML INJ ONE ×2 (06:24→06:49)
[2017-12-25] MEDS ORDERED: ACETAMINOPHEN 0 MG/0 ML RTUPB IV ONE (06:24)
[2017-12-25] MEDS ORDERED: FENTANYL CITRATE INJ/PF 250 MCG/5 ML AMPULE ONE (06:24)
[2017-12-25] MEDS ORDERED: LIDOCAINE 1%/EPINEPHRINE INJ 20 ML VIAL ONE (06:44)
[2017-12-25] MEDS ORDERED: LIDOCAINE 2% JELLY 30 ML TUBE ONE (06:45)
[2017-12-25] MEDS ORDERED: FENTANYL CITRATE INJ/PF 100 MCG/2 ML AMPUL ONE ×2 (06:49→08:40)
[2017-12-25] MEDS ORDERED: METRONIDAZOLE 500 MG/NS RTU 0 MG/0 ML RTUPB IV ONE (06:51)
[2017-12-25] MEDS ORDERED: BUPIVACAINE HCL/DEX-WATER/PF 15 MG/2 ML AMPULE ONE (06:59)
[2017-12-25] MEDS ORDERED: MORPHINE SULFATE 10 MG/ML INJ IV PRN (08:00)
[2017-12-25] MEDS ORDERED: MEPERIDINE HCL/PF INJ 25 MG/1 ML DISP.SYRIN IV PRN (08:00)
[2017-12-25] MEDS ORDERED: OXYCODONE-ACETAMINOPHEN 5-325 MG TABLET PO PRN ×3 (08:00→08:42)
[2017-12-25] MEDS ORDERED: FENTANYL CITRATE INJ/PF 100 MCG/2 ML AMPUL IV PRN ×3 (08:00)
[2017-12-25] MEDS ORDERED: DIPHENHYDRAMINE HCL 50 MG/ML VIAL IV PRN (08:00)
[2017-12-25] MEDS ORDERED: PROMETHAZINE HCL INJ 25 MG/1 ML VIAL IV PRN ×2 (08:00)
--- NOTE | 2017-12-25 08:42 | Discharge Summary ---
Discharge Summary (SDC) - Discharge Final Diagnosis: Chronic right anterior lateral perianal abscess Date of Surgery: 12/25/17 Discharge Date: 12/25/17 Condition: Good Treatment or Instructions: Patient to take stool softener daily; obtain excellent perineal care; return to [facility] to see PORFIRIO Faith in 1 week. Referrals: JUNAID ORTIZ PA-C [Primary Care Provider] - Discharge Diet: As Tolerated Discharge Activity: Activity As Tolerated Home Care Assistance: None Needed Report the Following to Your Physician Immediately: Shortness of Breath, Increase in Pain, Fever over 101 Degrees
--- NOTE | 2017-12-25 08:52 | Operative Report ---
Operative Report DATE OF SURGERY: 12/25/17 PREOPERATIVE DIAGNOSIS: Right anterior lateral chronic perianal abscess POSTOPERATIVE DIAGNOSIS: Same with remnant fistula tract OPERATION: 1. Examination of anal canal under anesthesia. 2. Anoscopy. 3. Complete excision of right anterior lateral chronic abscess cavity with chronic fistula tract remnant SURGEON: JESSICA RICHARD ANESTHESIA: GA TISSUE REMOVED OR ALTERED: Abscess cavity in fragments, with fistula tract remnant COMPLICATIONS: None ESTIMATED BLOOD LOSS: Minimal INTRAOPERATIVE FINDINGS: See below PROCEDURE: Patient was seen in the preop holding area and taken to the main operating room where general anesthesia was induced. The patient was then rotated from the supine to the prone position, arms flexed above his head, abdomen protected, legs elevated. The buttocks was exposed, clipped of hair, spred widely with benzoin and 3 inch tape. The buttock was prepped and draped in sterile fashion. Surgical plan surgical timeout conducted. The findings were significant for an active but minimally draining right anterior lateral abscess approximately 10 cm from the anal verge. Of note the patient had a deep anal crevice. On the left side was scar consistent with previous abscess cavity. Of note there was a thickened cordlike subcutaneous chronic scar going from the abscess cavity on a slight diagonal towards midline. We performed anal examination. The anal canal was dilated up to admit to index fingers. Again the reach was somewhat challenging due to the large buttock cheeks and the deep anal orifice. Nonetheless there were no palpable masses appreciated. I inserted the bullet anoscope and rotated it in a circumferential fashion and I saw no evidence of pus, blood and could not visualize an entrance point consistent with a fistula and a no. Nor could I palpate a defect along the dentate line. Again the exam was somewhat challenging due to the large buttock cheeks. At this point we anesthetized the acute abscess cavity with quarter percent Marcaine plain. I excised the abscess cavity in elliptical fashion creating a skin hole approximately 2-1/2-3 cm in diameter to encompass all of the fibrous tissue. In fact the abscess was connected to a chronic granulating tract that ran towards midline and in fact was the fibrotic scar that I saw prior to commencing the operation. I carefully dissected out the entire fistula tract until its point of entry into the external anal sphincter. As the fistula tract tapered down to essentially nothing, the the abscess tract was removed from its final point of attachment to the external sphincter. It appeared that the proximal component had either dissolved or atrophied over time. The specimen was sent to pathology for final analysis. The residual soft tissue cavity was now approximately 6 cm long as we had to excise some additional skin fibrotic tract. The cavity was clean no evidence of erythema or purulence. I felt that a primary closure would be safe and so this was affected with 6 interrupted 4-0 Ethilon sutures. Benzoin and honeycomb dressing applied. Patient tolerated procedure well, rotated in the supine position, extubated, taken recovery room in stable condition.
[2017-12-25 10:59] VITALS: BP 129/85
[2017-12-25] MEDS ORDERED: SUCCINYLCHOLINE CHLORIDE INJ 200 MG/10 ML VIAL ONE (13:25)
[2017-12-25] MEDS ORDERED: KETOROLAC TROMETHAMINE 60 MG/2 ML SDV ONE (13:25)
== END 2017-12-25 10:35 | disposition home or self-care (01) ==
LOC: OROUT 05:35
PROVIDERS: ATTEND Surgery
DX: K61.0 Anal abscess (principal); E66.9 Obesity, unspecified; Z79.899 Other long term (current) drug therapy; Z68.37 Body mass index [BMI] 37.0-37.9, adult
CPT/HCPCS: 36415; 85027; 88304 ×2; 46270; J2250; J1100; J1885; J3010; J3490 ×2; J0330; J2405; J2704; 902; J0131

== ENCOUNTER 2018-09-17 14:30 | Emergency (ER) | payer BC, OTHER ==
--- NOTE | 2018-09-17 15:21 | ER Document Report ---
ED Medical Screen (RME) - General Chief Complaint: Abscess Stated Complaint: ABSCESS Time Seen by Provider: 09/17/18 15:20 Primary Care Provider: JUNAID ORTIZ PA-C [Primary Care Provider] - Follow up as needed Notes: Patient with abscess to perineum. No definite perianal involvement. No obvious involvement of perineal raphae. No fever. Patient denies any history of diabetes. I have greeted and performed a rapid initial assessment of this patient. A comprehensive ED assessment and evaluation of the patient, analysis of test results and completion of the medical decision making process will be conducted by additional ED providers. TRAVEL OUTSIDE OF THE [place] IN LAST 30 DAYS: No - Related Data Allergies/Adverse Reactions: No Known Allergies Allergy (Verified 09/14/16 09:58) Past Medical History - Past Medical History Cardiac Medical History: Denies: Hx Coronary Artery Disease, Hx Heart Attack, Hx Hypertension Pulmonary Medical History: Denies: Hx Asthma, Hx Bronchitis, Hx COPD, Hx Pneumonia Neurological Medical History: Denies: Hx Cerebrovascular Accident, Hx Seizures Renal/ Medical History: Denies: Hx Peritoneal Dialysis Musculoskeltal Medical History: Denies Hx Arthritis - "joint discomfort b/l hands". Skin Medical History: Reports Hx Cellulitis Past Surgical History: Reports: Hx Oral Surgery - [place] teeth, Hx Rectal Surgery - abscess - Immunizations Immunizations up to date: Yes Hx Diphtheria, Pertussis, Tetanus Vaccination: Yes History of Influenza Vaccine for 12/2016 - 05/2017 Season: No Physical Exam - Vital signs Vitals: Temp Pulse Resp BP Pulse Ox 99.2 F 90 18 152/90 H 100 09/17/18 14:09/17/18 14:09/17/18 14:09/17/18 14:09/17/18 14:31 - General Notes: Abscess to perineum Course - Vital Signs Vital signs: Temp Pulse Resp BP Pulse Ox 99.2 F 90 18 152/90 H 100 09/17/18 14:09/17/18 14:09/17/18 14:09/17/18 14:09/17/18 14:31 Doctor's Discharge - Discharge Referrals: JUNAID ORTIZ PA-C [Primary Care Provider] - Follow up as needed
[2018-09-17] MEDS ORDERED: LIDOCAINE 1%/EPINEPHRINE INJ 20 ML VIAL INJ ONE (17:52)
--- NOTE | 2018-09-17 18:08 | ER Document Report ---
ED General - General Chief Complaint: Abscess Stated Complaint: ABSCESS Time Seen by Provider: 09/17/18 15:20 Primary Care Provider: JUNAID ORTIZ PA-C [Primary Care Provider] - Follow up as needed Mode of Arrival: Ambulatory Information source: Patient TRAVEL OUTSIDE OF THE [place] IN LAST 30 DAYS: No - HPI Patient complains to provider of: Right gluteal abscess Onset: Other - Past couple of days Onset/Duration: Gradual Quality of pain: Sharp Severity: Severe Pain Level: 4 Associated symptoms: denies: Chills, Fever Exacerbated by: Denies Relieved by: Denies Similar symptoms previously: No Recently seen / treated by doctor: No Notes: 48-year-old male coming in today with right gluteal abscess. Symptoms for the past 2 to 3 days. History of abscess in same place and previously had surgical intervention. Apparently the abscesses come back. No fevers or chills. - Related Data Allergies/Adverse Reactions: No Known Allergies Allergy (Verified 09/14/16 09:58) Past Medical History - General Information source: Patient - Social History Smoking Status: Never Smoker Frequency of alcohol use: None Drug Abuse: None Family History: Arthritis, CAD, DM, Hyperlipidemia, Hypertension, Malignancy Patient has suicidal ideation: No Patient has homicidal ideation: No - Past Medical History Cardiac Medical History: Denies: Hx Coronary Artery Disease, Hx Heart Attack, Hx Hypertension Pulmonary Medical History: Denies: Hx Asthma, Hx Bronchitis, Hx COPD, Hx Pneumonia Neurological Medical History: Denies: Hx Cerebrovascular Accident, Hx Seizures Renal/ Medical History: Denies: Hx Peritoneal Dialysis Musculoskeletal Medical History: Denies Hx Arthritis - "joint discomfort b/l hands". Skin Medical History: Reports Hx Cellulitis Past Surgical History: Reports: Hx Oral Surgery - [place] teeth, Hx Rectal Surgery - abscess - Immunizations Immunizations up to date: Yes Hx Diphtheria, Pertussis, Tetanus Vaccination: Yes Review of Systems - Review of Systems Notes: Constitutional: No fevers. No chills. EENT: No eye redness. No eye pain. No ear pain. No sore throat. Cardiovascular: No chest pain. No palpitations. Respiratory: No cough. No shortness of breath. No respiratory distress. Gastrointestinal: No abdominal pain. No nausea, vomiting, or diarrhea. Genitourinary: Atraumatic. No lesions. No pain. No discharge. Musculoskeletal: Atraumatic. No swelling. No deformities. Skin: Positive right gluteal abscess Lymphatic: No swollen lymph nodes. Neurologic: No headache. No syncope. Psychiatric: No suicidal or homicidal ideation. Physical Exam - Vital signs Vitals: Temp Pulse Resp BP Pulse Ox 99.2 F 90 18 152/90 H 100 09/17/18 14:31 09/17/18 14:09/17/18 14:09/17/18 14:09/17/18 14:31 - Notes Notes: General: Well-developed, well-nourished. In no acute distress. Non-toxic appearing. Cardiac: Well-perfused. Regular rate and rhythm. No murmurs, rubs, or gallops. Pulmonary: No respiratory distress. No cyanosis. Bilateral lung fiels are clear to auscultation. Abdominal: Non-distended. Non-rigid. Bowels sounds are present in all four quadrants. No guarding or rebound. HEENT: Head is atraumatic. Conjunctivae not reddened. No tearing. PERRL. EOMI. Orbits atraumatic. No periorbital swelling or erythema. Oropharynx is without erythema, swelling, or exudates. Neck: Supple. No adenopathy. No meningismus. Dermatologic: Large fluctuant abscess right medial gluteus. No active drainage Chest: Atraumatic. No chest wall tenderness to palpation. Musculoskeletal: Moves all extremities well. No range of motion deficits. no muscular or joint tenderness. No paraspinal muscle tenderness. no midline spinal tenderness or step-off. Genitourinary: Examination deferred Neurologic: No gross neurologic deficits. Psychiatric: Normal mood. Course - Vital Signs Vital signs: Temp Pulse Resp BP Pulse Ox 99.2 F 90 18 152/90 H 100 09/17/18 14:31 09/17/18 14:09/17/18 14:09/17/18 14:09/17/18 14:31 Procedures - Incision and Drainage right gluteus Time completed: 19:13 Type: Simple Anesthetic type: 1% Lidocaine w/epi mL's of anesthetic: 6 Blade size: 11 I&D procedure: Shurclens applied Incision Method: Incision made by scalpel Amount/type of drainage: moderate serosanguinous/clotted blood Discharge - Discharge Clinical Impression: Gluteal abscess Condition: Good Disposition: HOME, SELF-CARE Instructions: Abscess ([facility]), Trimethoprim-Sulfa ([facility]), Post Incision and Gabriel el, Oral Narcotic Medication ([facility]) Prescriptions: Sulfamethoxazole/Trimethoprim [Bactrim Ds Tablet] 1 each PO BID 10 Days #20 tablet Referrals: JESSICA RICHARD MD [ACTIVE STAFF] - Follow up as needed
[2018-09-17] MEDS ORDERED: HYDROCODONE/ACETAMINOPHEN 5-325 MG (6 TAB/ER DISP) PO PRN (19:15)
[2018-09-17] MEDS ORDERED: SULFAMETHOXAZOLE/TRIMETHOPRIM 800-160 MG TABLET PO ONE (19:16)
[2018-09-17 19:27] VITALS: BP 138/90
== END 2018-09-17 19:27 | disposition home or self-care (01) ==
LOC: ER 14:30
DX: L02.31 Cutaneous abscess of buttock (principal)
CPT/HCPCS: 99282; 87070; 87205; 87075; 10060; J3490; 87077